=== PATIENT | male | born 1980 | race Two or more races ===

== ENCOUNTER 2021-03-20 17:46 | Emergency (ER) | payer SELFPAY ==
[~2021-03-20] VITALS: Ht 170.2 cm; Wt 74.8 kg
[2021-03-20 17:53] VITALS: BP 133/85
[2021-03-21] MEDS ORDERED: IBUP800T27 PO (13:33)
== END 2021-03-20 20:46 | disposition left against medical advice (07) ==
LOC: ER 17:46
DX: M54.9 Dorsalgia, unspecified (principal); Z53.21 Procedure and treatment not carried out due to patient leaving prior to being seen by health care provider; W01.0XXA Fall on same level from slipping, tripping and stumbling without subsequent striking against object, initial encounter; Y93.89 Activity, other specified; Y92.89 Other specified places as the place of occurrence of the external cause; Y99.8 Other external cause status
CPT/HCPCS: 72100

== ENCOUNTER 2021-03-21 10:27 | Emergency (ER) | payer SELFPAY ==
[~2021-03-21] VITALS: Ht 170.2 cm; Wt 76.7 kg
[2021-03-21] MEDS ORDERED: KETOROLAC TROMETH 60MG/2ML VIAL IM ONE (13:15)
[2021-03-21] MEDS ORDERED: IBUP800T27 PO (13:33)
[2021-03-21 13:46] VITALS: BP 128/86
== END 2021-03-21 16:30 | disposition home or self-care (01) ==
LOC: ER 10:27
DX: S22.078A Other fracture of T9-T10 vertebra, initial encounter for closed fracture (principal); M54.59 Other low back pain; W11.XXXA Fall on and from ladder, initial encounter; Y93.89 Activity, other specified; Y92.89 Other specified places as the place of occurrence of the external cause; Y99.8 Other external cause status
CPT/HCPCS: 72128; 96372; 99284; J1885

== ENCOUNTER 2023-07-15 19:13 | Emergency (ER) | payer MEDICAID, OTHER ==
[~2023-07-15] VITALS: Ht 162.6 cm; Wt 72.6 kg
[~2023-07-15 19:13] MED LIST: IBUP-1456 PO
[2023-07-15 20:25] VITALS: BP 164/95; PULSE 101; RESP 20; TEMP 98.2; O2SAT 98
[2023-07-15] MEDS: KETOROLAC TROMETH 60MG/2ML VIAL IM ONE (20:40)
[2023-07-15] MEDS ORDERED: IBUP-1455 PO (20:44)
== END 2023-07-15 20:55 | disposition home or self-care (01) ==
LOC: ER 19:13
DX: S93.401A Sprain of unspecified ligament of right ankle, initial encounter (principal); W18.39XA Other fall on same level, initial encounter; Y93.89 Activity, other specified; Y92.89 Other specified places as the place of occurrence of the external cause; Y99.8 Other external cause status
CPT/HCPCS: 73610; 96372; 99283; J1885

== ENCOUNTER 2023-10-16 09:19 | Emergency (ER) | payer MEDICAID ==
[~2023-10-16] VITALS: Ht 160 cm; Wt 77.2 kg
[~2023-10-16 09:19] MED LIST changes: +IBUP-1455 PO
[2023-10-16 12:18] VITALS: BP 113/82; PULSE 87; RESP 16; TEMP 98.7; O2SAT 95
[2023-10-16] MEDS ORDERED: IBUP-1455 PO (12:54)
== END 2023-10-16 12:55 | disposition home or self-care (01) ==
LOC: ER 09:23
DX: S93.401A Sprain of unspecified ligament of right ankle, initial encounter (principal); Z79.1 Long term (current) use of non-steroidal anti-inflammatories (NSAID); X58.XXXA Exposure to other specified factors, initial encounter; Y93.89 Activity, other specified; Y92.89 Other specified places as the place of occurrence of the external cause; Y99.8 Other external cause status
CPT/HCPCS: 73610; 73630